=== PATIENT | male | born 2000 | race African-American/Black ===

== ENCOUNTER 2022-01-29 20:35 | Emergency (ER) | payer SELFPAY ==
[~2022-01-29] VITALS: Ht 182.9 cm; Wt 77.3 kg
[2022-01-29] MEDS ORDERED: AUD NEB (21:12)
[2022-01-30] MEDS ORDERED: PENICILLIN V POTASSIUM 500 MG TABLET PO ONE (00:30)
[2022-01-30] MEDS ORDERED: PENI500T2 PO (00:43)
[2022-01-30 00:53] VITALS: BP 124/63
== END 2022-01-30 00:54 | disposition home or self-care (01) ==
LOC: EMS 20:37
DX: K02.9 Dental caries, unspecified (principal); J45.909 Unspecified asthma, uncomplicated; F12.90 Cannabis use, unspecified, uncomplicated; Z91.010 Allergy to peanuts
CPT/HCPCS: 99283